=== PATIENT | female | born 1955 | race Caucasian/White ===

== ENCOUNTER 2018-06-27 14:06 | Emergency (ER) | payer MEDICARE, BC ==
[2018-06-27 14:24] VITALS: BP 159/94
[2018-06-27] MEDS ORDERED: HYDROmorphone 0.5 MG/0.5 ML Syringe IM ONE (15:22)
--- NOTE | 2018-06-27 15:48 | CR ---
Pelvis and left hip: AP view of the pelvis was obtained as well as AP and frog-leg lateral views of the left hip. Joint space narrowing is seen superiorly within the right hip with mild osteophytes off the femoral head. Joint space within the left hip is preserved. Sacroiliac joints are within normal limits. Surgical clips are seen within the pelvis. Impression: 1. Moderate degenerative change within the right hip. 2. Other incidental findings. Nothing acute is seen. Diagnostic code #2
--- NOTE | 2018-06-27 15:58 | EDM.PDOC ---
ED HPI GENERAL MEDICAL PROBLEM - General Chief Complaint: Back Pain or Injury Stated Complaint: L HIP/GROIN PAIN Time Seen by Provider: 06/27/18 14:22 Source of Information: Reports: Patient, Significant Other History Limitations: Reports: No Limitations - History of Present Illness INITIAL COMMENTS - FREE TEXT/NARRATIVE: 63 yo F w/ h/o PE on Xaralto comes in today for L hip pain that radiates to groin and L knee. She has a h/o of chronic back pain and hip/knee pain. She states that the original pain started 1 year ago and has been getting worse, with the last week being the worst. Walking makes it better, sitting and laying down make it worse. She still has good ROM overall, but has pain with flexion and twisting. She has tried Tylenol at home with no relief. She states she has not seen an orthopedic, but does see a chiropractor that "puts my hip back in place when it comes out". Last saw chiropractor Saturday as the L hip "dislocated ". She does not remember any recent trauma to the area. She c/o 10/10 pain, muscle spasms, lightheadedness and some intermittent numbness to the knee. She is able to weight-bear. She denies F/C, N/V/D, saddle anesthesia, incontinence, or any other symptoms at this time. PCP is Dr. Elvira Fu. Treatments QUALITY REP: Reports: Other (see below) Other Treatments QUALITY REP: tylenol Left Groin Pain Score (Numeric/FACES): 3 - Related Data Allergies Allergy/AdvReac Type Severity Reaction Status Date / Time No Known Allergies Allergy Verified 11/13/14 13:09 Home Meds: Home Meds Enalapril [Vasotec] 10 mg PO DAILY tablet 11/16/14 [Rx] Acetaminophen/oxyCODONE [Percocet 325-5 MG] 1 each PO Q6HR PRN #8 tab 06/27/18 [ Rx] Calcium Carb/Vitamin D3/Vit K1 [Viactiv Soft Chew] 1 tab PO DAILY 06/27/18 [ History] Fenofibrate 145 mg PO DAILY 06/27/18 [History] Rivaroxaban [Xarelto] 20 mg PO DAILY 06/27/18 [History] Simvastatin 10 mg PO BEDTIME 06/27/18 [History] hydroCHLOROthiazide [Hydrochlorothiazide] 25 mg PO DAILY 06/27/18 [History] 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 Last episode of bleeding 11 days ago. Other Musculoskeletal History: See chiropractor as needed. Other Dermatologic History: Excemea - Infectious Disease History Infectious Disease History: Reports: Chicken Pox - Past Surgical History Other Musculoskeletal Surgeries/Procedures:: fractured right arm at age 3 Social & Family History - Tobacco Use Smoking Status *Q: Never Smoker - Caffeine Use Caffeine Use: Reports: Tea - Recreational Drug Use Recreational Drug Use: No ED ROS GENERAL - Review of Systems Review Of Systems: ROS reveals no pertinent complaints other than HPI. ED EXAM,LOWER BACK PAIN/INJURY - Physical Exam Exam: See Below Exam Limited By: No Limitations General Appearance: Alert, WD/WN, Moderate Distress Eye Exam: Bilateral Eye: EOMI, Normal Inspection, PERRL Ears: Normal External Exam, Hearing Grossly Normal Head: Atraumatic, Normocephalic Respiratory/Chest: No Respiratory Distress, Lungs Clear, Normal Breath Sounds, No Accessory Muscle Use, Chest Non-Tender Cardiovascular: Normal Peripheral Pulses, Regular Rate, Rhythm, No Edema, No Gallop, No JVD, No Murmur, No Rub Back Exam: Other (Scoliosis). No: Muscle Spasm, Paraspinal Tenderness, Vertebral Tenderness Extremities: Normal Range of Motion (there is pain with hip flexion and twisting motion), No Pedal Edema, Normal Capillary Refill Psychiatric: Normal Affect, Tearful Skin Exam: Warm, Dry, Intact, Normal Color, No Rash Course - Vital Signs Last Recorded V/S: Last Vital Signs Temp 98.4 F 06/27/18 14:20 Pulse 69 06/27/18 14:20 Resp 20 06/27/18 14:20 BP 159/94 H 06/27/18 14:20 Pulse Ox 97 06/27/18 14:20 - Orders/Labs/Meds Orders: Active Orders 24 hr Category Date Time Status Hip Min 2V or 3V w Pelvis Lt [CR] Stat Exams 06/27/18 14:31 Taken Meds: Medications Discontinued Medications Generic Name Dose Route Start Last Admin Trade Name Freq PRN Reason Stop Dose Admin Hydromorphone HCl 0.5 mg 06/27/18 15:22 06/27/18 15:30 Dilaudid IM 06/27/18 15:23 0.5 mg ONETIME ONE Administration - Re-Assessments/Exams Free Text/Narrative Re-Assessment/Exam: 06/27/18 14:31 Hip XR ordered 06/27/18 15:00 Hip XR reviewed by Dr. Arias and myself- degenerative changes noted d/t arthritis, R>L. 06/27/18 15:22 Dilaudid 0.5mg ordered for extreme pain; unable to tolerate Toradol/NSAID d/t Xarelto. 06/27/18 16:01 Pt will be discharged and will need to follow up with orthopedic for help with this acute on chronic issue. Will send home with Percocet for pain as needed. Departure - Departure Time of Disposition: 16:02 Disposition: Home, Self-Care 01 Condition: Fair Clinical Impression: Degenerative arthritis of hip - Discharge Information *PRESCRIPTION DRUG MONITORING PROGRAM REVIEWED*: Not Applicable *COPY OF PRESCRIPTION DRUG MONITORING REPORT IN PATIENT REYNA: Not Applicable Prescriptions: Acetaminophen/oxyCODONE [Percocet 325-5 MG] 1 each PO Q6HR PRN #8 tab PRN Reason: Pain Instructions: Arthritis, [id number], Back Pain, Adult, [id number] Referrals: Elvira Fu MD [Primary Care Provider] - Kiel Chery MD [Physician] - Forms: ED Department Discharge Additional Instructions: You were seen in the ED today for acute left hip pain on chronic pain. Your Xray showed that there is arthritis in both of your hips, right worse than left , no fractures. At this time, pain management is needed as well as follow up with orthopedic surgeon. You can make an appointment with the orthopedic, Dr. Chery, by calling . You will be sent home with a prescription for Percocet, take as needed for pain. Do not operate machinery or drive while on this medication as it does cause impairment. Recommend follow up with your primary care provider. Please return to ED if new or worsening symptoms. - My Orders Last 24 Hours: My Active Orders 06/27/18 14:31 Hip Min 2V or 3V w Pelvis Lt [CR] Stat - Assessment/Plan Last 24 Hours: My Active Orders 06/27/18 14:31 Hip Min 2V or 3V w Pelvis Lt [CR] Stat
== END 2018-06-27 16:39 | disposition home or self-care (01) ==
LOC: JD.ED 14:06
DX: M16.0 Bilateral primary osteoarthritis of hip (principal); Z79.899 Other long term (current) drug therapy
CPT/HCPCS: 73502; 96372; 99283; J1170

== ENCOUNTER 2020-10-14 10:33 | Emergency (ER) | payer MEDICARE, BC ==
[2020-10-14 12:16] VITALS: BP 144/51; PULSE 59
[2020-10-14] MEDS ORDERED: HYDROmorphone 1 MG/ML Syringe IM ONE (12:23)
--- NOTE | 2020-10-14 12:34 | EDM.PDOC ---
ED HPI GENERAL MEDICAL PROBLEM - General Chief Complaint: General Stated Complaint: BACK AND HIP PAIN Time Seen by Provider: 10/14/20 12:10 Source of Information: Reports: Patient, RN Notes Reviewed History Limitations: Reports: No Limitations - History of Present Illness INITIAL COMMENTS - FREE TEXT/NARRATIVE: Pt is a 65 year old male presenting to the ER with c/o left hip pain. She reports chronic hip pain for a long period of time. She fell in the shower 3 weeks ago and has been having worsening pain since that time. Pain is improved by walking and worsens with sitting or lying. She has had steroid injections in the past but it has been a long time since her last. She was not seen in the clinic after her fell but has been seeing her chiropractor. Pain was improving initially but now seems worse again. Reports radiation of pain down to the level of her knee. Left Hip Pain Score (Numeric/FACES): 7 - Related Data Allergies Allergy/AdvReac Type Severity Reaction Status Date / Time No Known Allergies Allergy Verified 11/13/14 13:09 Home Meds: Home Meds Enalapril [Vasotec] 10 mg PO DAILY tablet 11/16/14 [Rx] Acetaminophen/oxyCODONE [Percocet 325-5 MG] 1 each PO Q6HR PRN #8 tab 06/27/18 [Rx] Calcium Carb/Vitamin D3/Vit K1 [Viactiv Soft Chew] 1 tab PO DAILY 06/27/18 [History] Fenofibrate 145 mg PO DAILY 06/27/18 [History] Rivaroxaban [Xarelto] 20 mg PO DAILY 06/27/18 [History] Simvastatin 10 mg PO BEDTIME 06/27/18 [History] hydroCHLOROthiazide [Hydrochlorothiazide] 25 mg PO DAILY 06/27/18 [History] Acetaminophen/oxyCODONE [Percocet 325-5 MG] 1 each PO Q4H PRN #15 tab 10/14/20 [Rx] 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 Last episode of bleeding 11 days ago. Musculoskeletal History: Reports: Osteoarthritis Other Musculoskeletal History: See chiropractor as needed. Other Dermatologic History: Excemea - Infectious Disease History Infectious Disease History: Reports: Chicken Pox, Influenza - Past Surgical History Musculoskeletal Surgical History: Reports: Other (See Below) Other Musculoskeletal Surgeries/Procedures:: fractured right arm at age 3 Social & Family History - Tobacco Use Tobacco Use Status *Q: Never Tobacco User - Caffeine Use Caffeine Use: Reports: Tea - Recreational Drug Use Recreational Drug Use: No ED ROS GENERAL - Review of Systems Review Of Systems: See Below Constitutional: Reports: No Symptoms. Denies: Fever, Chills HEENT: Reports: No Symptoms Respiratory: Reports: No Symptoms Cardiovascular: Reports: No Symptoms Endocrine: Reports: No Symptoms GI/Abdominal: Reports: No Symptoms. Denies: Nausea, Vomiting : Reports: No Symptoms Musculoskeletal: Reports: Other (left hip pain) Skin: Reports: No Symptoms Neurological: Reports: No Symptoms Psychiatric: Reports: No Symptoms Hematologic/Lymphatic: Reports: No Symptoms Immunologic: Reports: No Symptoms ED EXAM, GENERAL - Physical Exam Exam: See Below General Appearance: Alert, WD/WN, No Apparent Distress Respiratory/Chest: No Respiratory Distress, Lungs Clear, Normal Breath Sounds, No Accessory Muscle Use, Chest Non-Tender Cardiovascular: Normal Peripheral Pulses, Regular Rate, Rhythm, No Edema, No Gallop, No JVD, No Murmur, No Rub Extremities: Other (tenderness to palpation of the left posterior hip and groin. No tenderness of the greater trochanter. No redness or warmth.) Neurological: Alert, Oriented, CN II-XII Intact, Normal Cognition, Normal Gait, Normal Reflexes, No Motor/Sensory Deficits Psychiatric: Normal Affect, Normal Mood Skin Exam: Warm, Dry, Intact, Normal Color, No Rash Course - Vital Signs Last Recorded V/S: Last Vital Signs Temp 96.7 F L 10/14/20 12:15 Pulse 59 L 10/14/20 12:15 Resp 20 10/14/20 12:15 BP 144/51 H 10/14/20 12:15 Pulse Ox 93 L 10/14/20 12:15 - Orders/Labs/Meds Labs: Laboratory Tests 10/14/20 10/14/20 10/14/20 Range/Units 14:28 14:28 14:28 WBC 8.47 (3.98-10.04) K/mm3 RBC 3.94 L (3.98-5.22) M/mm3 Hgb 10.9 L (11.2-15.7) gm/dl Hct 35.2 (34.1-44.9) % MCV 89.3 (79.4-94.8) fl MCH 27.7 (25.6-32.2) pg MCHC 31.0 L (32.2-35.5) g/dl RDW Std Deviation 47.7 H (36.4-46.3) fL Plt Count 300 D (182-369) K/mm3 MPV 10.5 (9.4-12.3) fl Neut % (Auto) 75.7 H (34.0-71.1) % Lymph % (Auto) 13.7 L (19.3-51.7) % Dixie % (Auto) 9.6 (4.7-12.5) % Eos % (Auto) 0.7 (0.7-5.8) Baso % (Auto) 0.2 (0.1-1.2) % Neut # (Auto) 6.41 H (1.56-6.13) K/mm3 Lymph # (Auto) 1.16 L (1.18-3.74) K/mm3 Dixie # (Auto) 0.81 H (0.24-0.36) K/mm3 Eos # (Auto) 0.06 (0.04-0.36) K/mm3 Baso # (Auto) 0.02 (0.01-0.08) K/mm3 ESR 80 H (0-20) mm/hr Sodium 142 (136-145) mEq/L Potassium 4.0 (3.5-5.1) mEq/L Chloride 105 (98-107) mEq/L Carbon Dioxide 25 (21-32) mEq/L Anion Gap 16.0 H (5-15) BUN 31 H (7-18) mg/dL Creatinine 1.3 H (0.55-1.02) mg/dL Est Cr Clr Drug Dosing 36.26 mL/min Estimated GFR (MDRD) 41 (>60) mL/min BUN/Creatinine Ratio 23.8 H (14-18) Glucose 96 (70-99) mg/dL Calcium 9.5 (8.5-10.1) mg/dL Total Bilirubin 0.4 (0.2-1.0) mg/dL AST 19 (15-37) U/L ALT 17 (14-59) U/L Alkaline Phosphatase 66 (46-116) U/L C-Reactive Protein 5.4 H* (<1.0) mg/dL Total Protein 7.7 (6.4-8.2) g/dl Albumin 3.6 (3.4-5.0) g/dl Globulin 4.1 gm/dL Albumin/Globulin Ratio 0.9 L (1-2) Meds: Medications Discontinued Medications Generic Name Dose Route Start Last Admin Trade Name Sandeepq PRN Reason Stop Dose Admin Hydromorphone HCl 1 mg 10/14/20 12:23 10/14/20 12:43 Hydromorphone 1 Mg/Ml Syringe IM 10/14/20 12:24 1 mg ONETIME ONE Administration - Re-Assessments/Exams Free Text/Narrative Re-Assessment/Exam: 10/14/20 14:30 Patient's pain is much better after the 1 mg of IM Dilaudid. X-ray of the left hip impression as follows: 1. Lucency within the medial left acetabular wall compatible with an osteolytic lesion. Please correlate if the patient has infectious etiology or history of malignancy to represent metastases. 2. Diffuse joint space narrowing in both hips. 3. Lytic lesion is an interval change from prior radiography studies. Results discussed with patient. She reports she does have a history of endometrial cancer a number of years back which she was in remission from. She is had no infectious symptoms. I have ordered blood work to look for signs of infection. Once this is completed, I will consult with orthopedics. 10/14/20 1540 Hematology shows a normal WBC, ESR elevated at 80, and CRP elelvated at 5.4. [facility] He recommended that we obtain a CT of the hip and have her follow up with them in the clinic next week. I have ordered CT of the left hip. 10/14/20 16:48 Radiologist read of this hip CT is pending, however patient would like to be discharged. I will have her follow-up next week in the clinic with Dr. Chery. I will send prescription for Percocet for pain. Discharge instructions as documented. Departure - Departure Time of Disposition: 16:48 Disposition: Home, Self-Care 01 Condition: Good Clinical Impression: Hip pain, left - Discharge Information *PRESCRIPTION DRUG MONITORING PROGRAM REVIEWED*: Yes *COPY OF PRESCRIPTION DRUG MONITORING REPORT IN PATIENT REYNA: No Prescriptions: Acetaminophen/oxyCODONE [Percocet 325-5 MG] 1 each PO Q4H PRN #15 tab PRN Reason: Pain Instructions: Hip Pain Referrals: Elvira Fu MD [Primary Care Provider] - Kiel Chery MD [Physician] - Forms: ED Department Discharge Additional Instructions: Seen in the emergency department today for had left hip pain. Work-up included x-ray and a CT scan of your hip as well as blood work. There is concerns of an osteolytic lesion in your hip. Recommend follow-up with orthopedist, Dr. Chery early next week. The number to schedule with him as listed below. Recommend routine Tylenol discomfort. For pain not relieved by this, a prescription for Percocet has been provided. Take this only as prescribed. Do not work or drive for 12 hours after taking this as it can be sedating. Ensure that you do not take more than 4000 mg of Tylenol for all sources in a 24-hour period. If you should experience any worsening symptoms, please do not hesitate to return to the emergency department for reevaluation. Sepsis Event Note (ED) - Evaluation Sepsis Screening Result: No Definite Risk
--- NOTE | 2020-10-14 13:31 | CR ---
Pelvis and left hip: AP view of the pelvis was obtained as well as AP and frog-leg lateral view of the left hip. Comparison: Prior pelvis and left hip study of 06/27/18. Joint space narrowing is noted within both hips, worse on the left side. Lucency is noted within the medial acetabular wall of the left hip and compatible with an osteolytic lesion. Sacroiliac joints are normal. Bony structures are slightly osteopenic. Surgical clips are seen within the pelvis. Impression: 1. Lucency within the medial left acetabular wall compatible with an osteolytic lesion. Please correlate if patient has infectious etiology or history of malignancy to represent metastasis. 2. Diffuse joint space narrowing within both hips. 3. Lytic lesion is an interval change from prior radiographic study. Diagnostic code #9
--- NOTE | 2020-10-16 16:43 | CT ---
CT left hip Technique: Multiple axial sections through the left hip were obtained. Reconstructed coronal and sagittal images were obtained. Comparison: Prior left hip radiograph performed on the same day (12:30 PM). Findings: Large soft tissue mass is seen which invades the medial acetabular wall causing the lucency on plain film study. This soft tissue mass has transverse dimension of 7.7 cm, AP dimension of 8.0 cm and a craniocaudal height of approximately 9.5 cm. Medial acetabular wall is missing. This presumably is metastatic. There is diffuse joint space narrowing within the left hip. Inferior and superior pubic ramus are intact. Joint space narrowing is also noted within the right hip. Disc space narrowing is noted within L5-S1 with posterior spurring. Degenerative apophyseal change is noted within the lower lumbar spine. Impression: 1. Large soft tissue mass causing destruction of the left side of the pelvis in the area of the hip. Medial acetabular wall is missing. Measurements as noted above. This presumably is metastatic disease. 2. Degenerative change within both hips as well as within the lumbar spine. Diagnostic code #9 MTDD
== END 2020-10-14 16:54 | disposition home or self-care (01) ==
LOC: JD.ED 10:33
DX: M25.552 Pain in left hip (principal); M19.90 Unspecified osteoarthritis, unspecified site; Z79.01 Long term (current) use of anticoagulants; Z79.899 Other long term (current) drug therapy
CPT/HCPCS: 36415; 73502; 73700; 80053; 85025; 85652; 86140; 96372; 99284; J1170; 99283

== ENCOUNTER 2021-10-16 13:28 | Emergency (ER) | payer MEDICARE, BC ==
[2021-10-16] MEDS ORDERED: Sodium Chloride 0.9% 10 ML Syringe FLUSH PRN (15:57)
[2021-10-16] MEDS ORDERED: cloNIDine 0.1 MG Tab PO ONE (16:26)
[2021-10-16 19:30] VITALS: BP 220/82; PULSE 52
== END 2021-10-16 19:20 | disposition home or self-care (01) ==
LOC: JD.ED 13:28
DX: I10 Essential (primary) hypertension (principal); R19.7 Diarrhea, unspecified; D64.9 Anemia, unspecified; Z79.899 Other long term (current) drug therapy
CPT/HCPCS: 36415; 71045; 80053; 81001; 84484; 85025; 93005; 99284; A9270; 93010

== ENCOUNTER 2021-11-16 16:18 | Emergency (ER) | payer MEDICARE, BC ==
[2021-11-16 17:10] VITALS: BP 132/57; PULSE 55
[2021-11-16 18:38] LABS: ESTIMATED GFR 23 mL/min (>60)
[2021-11-16] MEDS ORDERED: Potassium Chloride 10 MEQ in Premix Bag 1 BAG IV SCH (19:00)
== END 2021-11-16 20:15 | disposition home or self-care (01) ==
LOC: JD.ED 16:18
DX: D64.89 Other specified anemias (principal); E87.6 Hypokalemia; M19.90 Unspecified osteoarthritis, unspecified site; Z79.01 Long term (current) use of anticoagulants; Z79.899 Other long term (current) drug therapy
CPT/HCPCS: 36415; 80053; 85025; 96365; 99284; J3480; 86850; 86900; 86901; 86922; 99283

== ENCOUNTER 2022-09-03 09:01 | Day surgery (SDC) | payer MEDICARE, BC ==
[2022-09-03] MEDS ORDERED: Sodium Chloride 0.9% 10 ML Syringe FLUSH PRN (09:02)
[2022-09-03] MEDS ORDERED: Lidocaine 1%/Sod Bicarbonate in NS 8.4% 1 ML Syringe IDERM PRN (09:02)
[2022-09-03] MEDS ORDERED: Lactated Ringers 1,000 ML IV SCH (09:15)
[2022-09-03] MEDS ORDERED: Propofol 200 MG/20 ML SDV ONE ×3 (09:55→10:50)
[2022-09-03] MEDS ORDERED: fentaNYL 100 MCG/2 ML SDV ONE (10:05)
[2022-09-03 10:25] LABS: ANION GAP 14.1 (5-15); BLOOD UREA NITROGEN,BUN 24 mg/dL (7-18); CALCIUM 8.7 mg/dL (8.5-10.1); CARBON DIOXIDE,CO2 23 mEq/L (21-32); CHLORIDE,CL 106 mEq/L (98-107); CREATININE 1.2 mg/dL (0.55-1.02); ESTIMATED GFR 49 mL/min (>60); GLUCOSE RANDOM 107 mg/dL (70-99); POTASSIUM,K 4.1 mEq/L (3.5-5.1); SODIUM,NA 139 mEq/L (136-145)
[2022-09-03] MEDS ORDERED: Midazolam 1 MG/ML 2 ML SDV ONE (10:25)
[2022-09-03 13:41] VITALS: BP 142/49; PULSE 58
== END 2022-09-03 12:42 | disposition home or self-care (01) ==
LOC: JD.SDS 09:01
PROVIDERS: ATTEND Surgery
DX: Z12.11 Encounter for screening for malignant neoplasm of colon (principal); K29.50 Unspecified chronic gastritis without bleeding; K31.A0 Gastric intestinal metaplasia, unspecified; K44.9 Diaphragmatic hernia without obstruction or gangrene; K29.80 Duodenitis without bleeding; Z53.09 Procedure and treatment not carried out because of other contraindication; I10 Essential (primary) hypertension; E78.2 Mixed hyperlipidemia; Z86.010 Personal history of colon polyps; Z79.899 Other long term (current) drug therapy; Z88.1 Allergy status to other antibiotic agents; Z88.5 Allergy status to narcotic agent
CPT/HCPCS: 36415; 43239; 80048; G0104; J2250; J2704; J3010; J7120

== ENCOUNTER 2023-03-16 10:49 | Emergency (ER) | payer MEDICARE, BC ==
[2023-03-16] MEDS ORDERED: HYDROmorphone 0.5 MG/0.5 ML Syringe IVPUSH ONE (12:46)
[2023-03-16 13:01] LABS: BASOPHILS PERCENT AUTO 0.2 % (0.0-1.0); EOSINOPHILS PERCENT AUTO 0.2 % (0.0-6.0); HEMATOCRIT 33.5 % (37.0-47.0); HEMOGLOBIN 11.3 gm/dl (12.0-16.0); IMMATURE GRAN ABSOLUTE AUTO 0.06 K/mm3 (0.00-0.05); IMMATURE GRAN PERCENT AUTO 1.1 % (0.0-0.4); LYMPHOCYTES ABSOLUTE AUTO 0.5 K/mm3 (1.0-4.8); LYMPHOCYTES PERCENT AUTO 8.8 % (24.0-44.0); MEAN CORPUSCULAR HEMOGLOBIN 33.5 pg (28.0-32.0); MEAN CORPUSCULAR HGB CONC 33.7 g/dl (32.0-36.0); MEAN CORPUSCULAR VOLUME 99.4 fl (83.0-99.0); MEAN PLATELET VOLUME 9.7 fl (9.4-12.3); MONOCYTES ABSOLUTE AUTO 0.7 K/mm3 (0.0-0.8); MONOCYTES PERCENT AUTO 13.6 % (0.0-8.0); NEUTROPHILS PERCENT AUTO 76.1 % (41.0-71.0); PLATELET COUNT,PLT 321 K/mm3 (150-400); RED BLOOD CELL COUNT 3.37 M/mm3 (4.10-5.30); WHITE BLOOD CELL COUNT,WBC 5.22 K/mm3 (3.9-11.3)
[2023-03-16] MEDS ORDERED: Ondansetron 4 MG/2 ML SDV IVPUSH ONE (13:04)
[2023-03-16 13:10] LABS: A/G RATIO 0.7 (1-2); ALBUMIN 2.8 g/dl (3.4-5.0); ANION GAP 20.1 (5-15); BILIRUBIN TOTAL 0.6 mg/dL (0.2-1.0); BUN/CREATININE RATIO 28.7 (14-18); CALCIUM 8.6 mg/dL (8.5-10.1); CREATININE 1.5 mg/dL (0.55-1.02); EST CRCL DRUG DOSING (CG) 30.57 mL/min; POTASSIUM,K 3.1 mEq/L (3.5-5.1); PROTEIN TOTAL,TP 6.7 g/dl (6.4-8.2)
[2023-03-16] MEDS ORDERED: Potassium Chloride 20 MEQ Tab.ER PO ONE (13:30)
[2023-03-16] MEDS ORDERED: Sodium Chloride 0.9% 1,000 ML IV SCH (13:30)
[2023-03-16 13:50] LABS: APPEARANCE,URINE CLEAR (Clear); BILIRUBIN,URINE 1+ (Negative); COLOR,URINE YELLOW (Yellow); GLUCOSE,URINE NEGATIVE (Negative); KETONES,URINE 1+ (Negative); LEUKOCYTE ESTERASE,URINE NEGATIVE (Negative); NITRITE,URINE NEGATIVE (Negative); OCCULT BLOOD,URINE NEGATIVE (Negative); PROTEIN,URINE 2+ (Negative); UROBILINOGEN,URINE 0.2 (0.2-1.0)
[2023-03-16 14:15] LABS: RBC,URINE NOT SEEN /hpf (0-5); SQUAMOUS EPITHELIAL CELLS,UR 0-5 /hpf (0-5); WBC,URINE 0-5 /hpf (0-5)
[2023-03-16 14:16] LABS: BACTERIA,URINE MODERATE /hpf (FEW); MUCUS,URINE RARE /hpf (FEW)
[2023-03-16] MEDS ORDERED: fentaNYL 25 MCG/HR Transdermal Patch TRDERM SCH (14:30)
[2023-03-16 15:10] VITALS: BP 166/81; PULSE 65
== END 2023-03-16 15:45 | disposition home or self-care (01) ==
LOC: JD.ED 10:49
DX: M25.552 Pain in left hip (principal); T45.1X5A Adverse effect of antineoplastic and immunosuppressive drugs, initial encounter; I12.9 Hypertensive chronic kidney disease with stage 1 through stage 4 chronic kidney disease, or unspecified chronic kidney disease; N18.9 Chronic kidney disease, unspecified; E78.00 Pure hypercholesterolemia, unspecified; Z90.710 Acquired absence of both cervix and uterus; Z79.899 Other long term (current) drug therapy; Z88.8 Allergy status to other drugs, medicaments and biological substances; Z88.5 Allergy status to narcotic agent; Z91.048 Other nonmedicinal substance allergy status
CPT/HCPCS: 36415; 70450; 80053; 81001; 83735; 85025; 96361; 96374; 96375; 99285; A9270; J1170; J2405; J7030

== ENCOUNTER 2024-10-17 20:16 | Inpatient (IN) | payer MEDICARE, BC ==
[2024-10-17 21:06] LABS: BASOPHILS ABSOLUTE AUTO 0.0 K/mm3 (0.0-0.2); BASOPHILS PERCENT AUTO 0.1 % (0.0-1.0); EOSINOPHILS ABSOLUTE AUTO 0.0 K/mm3 (0.0-0.4); EOSINOPHILS PERCENT AUTO 0.1 % (0.0-6.0); IMMATURE GRAN ABSOLUTE AUTO 0.08 K/mm3 (0.00-0.05); IMMATURE GRAN PERCENT AUTO 0.5 % (0.0-0.4); LYMPHOCYTES ABSOLUTE AUTO 0.3 K/mm3 (1.0-4.8); LYMPHOCYTES PERCENT AUTO 1.7 % (24.0-44.0); MEAN PLATELET VOLUME 9.1 fl (9.4-12.3); MONOCYTES ABSOLUTE AUTO 1.0 K/mm3 (0.0-0.8); MONOCYTES PERCENT AUTO 6.8 % (0.0-8.0); NEUTROPHILS ABSOLUTE AUTO 13.9 K/mm3 (1.8-7.7); NEUTROPHILS PERCENT AUTO 90.8 % (41.0-71.0); NRBC ABSOLUTE 0.00 (0.00-0.02); NRBC PERCENT 0.0 % (0.0-0.2); PLATELET COUNT,PLT 248 K/mm3 (150-400); RED BLOOD CELL COUNT 3.54 M/mm3 (4.10-5.30); WHITE BLOOD CELL COUNT,WBC 15.31 K/mm3 (3.9-11.3)
[2024-10-17 21:31] LABS: A/G RATIO 0.8 (1-2); ALANINE AMINOTRANSFERASE,ALT 26 U/L (14-59); ASPARTATE AMNIOTRANSFERASE,AST 22 U/L (15-37); BILIRUBIN TOTAL 0.5 mg/dL (0.2-1.0); BLOOD UREA NITROGEN,BUN 29 mg/dL (7-18); CARBON DIOXIDE,CO2 22 mEq/L (21-32); CHLORIDE,CL 103 mEq/L (98-107); CREATININE 1.4 mg/dL (0.55-1.02); ESTIMATED GFR 40 mL/min (>60); GLUCOSE RANDOM 128 mg/dL (70-99); POTASSIUM,K 4.6 mEq/L (3.5-5.1); PROTEIN TOTAL,TP 6.7 g/dl (6.4-8.2); SODIUM,NA 137 mEq/L (136-145)
[2024-10-17] MEDS ORDERED: Sodium Chloride 0.9% 10 ML Syringe FLUSH PRN ×2 (21:48→23:22)
[2024-10-17] MEDS: Sodium Chloride 0.9% 10 ML Syringe FLUSH PRN (22:27)
[2024-10-17] MEDS: Iopamidol 612 MG/ML 100 ML Bottle IVPUSH ONE (22:27)
[2024-10-17 23:38] LABS: INR 1.09
[2024-10-17 23:46] LABS: LACTIC ACID 0.7 mmol/L (0.4-2.0)
[2024-10-18 00:22] LABS: APPEARANCE,URINE CLEAR (Clear); GLUCOSE,URINE NEGATIVE (Negative); OCCULT BLOOD,URINE TRACE-LYSED (Negative)
[2024-10-18 00:44] LABS: FINE GRANULAR CASTS,URINE 0-5 /lpf (0-5)
[2024-10-18 05:46] LABS: BASOPHILS ABSOLUTE AUTO 0.0 K/mm3 (0.0-0.2); BASOPHILS PERCENT AUTO 0.1 % (0.0-1.0); EOSINOPHILS ABSOLUTE AUTO 0.0 K/mm3 (0.0-0.4); EOSINOPHILS PERCENT AUTO 0.0 % (0.0-6.0); IMMATURE GRAN ABSOLUTE AUTO 0.43 K/mm3 (0.00-0.05); IMMATURE GRAN PERCENT AUTO 2.5 % (0.0-0.4); LYMPHOCYTES ABSOLUTE AUTO 0.3 K/mm3 (1.0-4.8); LYMPHOCYTES PERCENT AUTO 1.8 % (24.0-44.0); MEAN PLATELET VOLUME 9.6 fl (9.4-12.3); MONOCYTES ABSOLUTE AUTO 1.4 K/mm3 (0.0-0.8); MONOCYTES PERCENT AUTO 8.3 % (0.0-8.0); NEUTROPHILS ABSOLUTE AUTO 14.9 K/mm3 (1.8-7.7); NEUTROPHILS PERCENT AUTO 87.3 % (41.0-71.0); NRBC ABSOLUTE 0.00 (0.00-0.02); NRBC PERCENT 0.0 % (0.0-0.2); PLATELET COUNT,PLT 241 K/mm3 (150-400); RED BLOOD CELL COUNT 3.24 M/mm3 (4.10-5.30); WHITE BLOOD CELL COUNT,WBC 17.05 K/mm3 (3.9-11.3)
[2024-10-18 06:16] LABS: A/G RATIO 0.7 (1-2); ALANINE AMINOTRANSFERASE,ALT 24.0 U/L (14-59); ASPARTATE AMNIOTRANSFERASE,AST 24.0 U/L (15-37); BILIRUBIN TOTAL 0.6 mg/dL (0.2-1.0); BLOOD UREA NITROGEN,BUN 25.0 mg/dL (7-18); CARBON DIOXIDE,CO2 22.0 mEq/L (21-32); CHLORIDE,CL 103.0 mEq/L (98-107); CREATININE 1.3 mg/dL (0.55-1.02); EST CRCL DRUG DOSING (CG) 29.95 mL/min; ESTIMATED GFR 44.0 mL/min (>60); GLUCOSE RANDOM 124.0 mg/dL (70-99); PHOSPHORUS 2.6 mg/dL (2.6-4.7); POTASSIUM,K 4.3 mEq/L (3.5-5.1); PROTEIN TOTAL,TP 6.0 g/dl (6.4-8.2); SODIUM,NA 135.0 mEq/L (136-145)
[2024-10-18] MEDS: Magnesium Sulfat/D5W 1GM/100ML 1 GM in Premix Bag 1 BAG IV ONE (08:47)
[2024-10-18] MEDS ORDERED: Labetalol 100 MG/20 ML MDV IVPUSH PRN (08:47)
[2024-10-18] MEDS: Heparin Sodium 5,000 Units/ML Vial SUBCUT SCH (10:47)
[2024-10-18] MEDS: Furosemide 40 MG/4 ML VIAL IVPUSH ONE (10:47)
[2024-10-18] MEDS: Ondansetron 4 MG/2 ML SDV IVPUSH PRN (17:27)
[2024-10-18] MEDS ORDERED: Sennosides/Docusate Sodium 50-8.6 MG Tab PO PRN (21:00)
[2024-10-19 06:04] LABS: BASOPHILS ABSOLUTE AUTO 0.0 K/mm3 (0.0-0.2); BASOPHILS PERCENT AUTO 0.1 % (0.0-1.0); EOSINOPHILS ABSOLUTE AUTO 0.0 K/mm3 (0.0-0.4); EOSINOPHILS PERCENT AUTO 0.0 % (0.0-6.0); IMMATURE GRAN ABSOLUTE AUTO 0.15 K/mm3 (0.00-0.05); IMMATURE GRAN PERCENT AUTO 0.8 % (0.0-0.4); LYMPHOCYTES ABSOLUTE AUTO 0.4 K/mm3 (1.0-4.8); LYMPHOCYTES PERCENT AUTO 2.4 % (24.0-44.0); MEAN PLATELET VOLUME 9.6 fl (9.4-12.3); MONOCYTES ABSOLUTE AUTO 1.3 K/mm3 (0.0-0.8); MONOCYTES PERCENT AUTO 7.3 % (0.0-8.0); NEUTROPHILS ABSOLUTE AUTO 16.1 K/mm3 (1.8-7.7); NEUTROPHILS PERCENT AUTO 89.4 % (41.0-71.0); NRBC ABSOLUTE 0.00 (0.00-0.02); NRBC PERCENT 0.0 % (0.0-0.2); PLATELET COUNT,PLT 262 K/mm3 (150-400); RED BLOOD CELL COUNT 3.59 M/mm3 (4.10-5.30); WHITE BLOOD CELL COUNT,WBC 18.00 K/mm3 (3.9-11.3)
[2024-10-19 06:24] LABS: BLOOD UREA NITROGEN,BUN 25 mg/dL (7-18); CARBON DIOXIDE,CO2 24 mEq/L (21-32); CHLORIDE,CL 101 mEq/L (98-107); CREATININE 1.3 mg/dL (0.55-1.02); EST CRCL DRUG DOSING (CG) 29.95 mL/min; ESTIMATED GFR 44 mL/min (>60); GLUCOSE RANDOM 137 mg/dL (70-99); PHOSPHORUS 3.3 mg/dL (2.6-4.7); POTASSIUM,K 3.3 mEq/L (3.5-5.1); SODIUM,NA 137 mEq/L (136-145)
[2024-10-19 09:26] LABS: FOLIC ACID 53.0 ng/mL (8.6-58.9)
[2024-10-19] MEDS ORDERED: Naloxone 0.4 MG/ML SDV IVPUSH PRN (10:01)
[2024-10-19] MEDS: hydrALAZINE 20 MG/ML SDV IVPUSH PRN (13:29)
[2024-10-19] MEDS: Sodium Chloride 0.9% 10 ML Syringe FLUSH PRN (13:43)
[2024-10-19] MEDS: Iopamidol 612 MG/ML 100 ML Bottle IVPUSH ONE (14:59)
[2024-10-19] MEDS: LORazepam 2 MG/ML SDV IVPUSH ONE (15:45)
[2024-10-19] MEDS: Oxacillin 2 GM in Sodium Chloride 0.9% 100 ML IV SCH (17:18)
[2024-10-20 07:39] LABS: BASOPHILS ABSOLUTE AUTO 0.0 K/mm3 (0.0-0.2); BASOPHILS PERCENT AUTO 0.1 % (0.0-1.0); EOSINOPHILS ABSOLUTE AUTO 0.0 K/mm3 (0.0-0.4); EOSINOPHILS PERCENT AUTO 0.0 % (0.0-6.0); IMMATURE GRAN ABSOLUTE AUTO 0.14 K/mm3 (0.00-0.05); IMMATURE GRAN PERCENT AUTO 0.9 % (0.0-0.4); LYMPHOCYTES ABSOLUTE AUTO 0.5 K/mm3 (1.0-4.8); LYMPHOCYTES PERCENT AUTO 3.0 % (24.0-44.0); MEAN PLATELET VOLUME 9.7 fl (9.4-12.3); MONOCYTES ABSOLUTE AUTO 1.1 K/mm3 (0.0-0.8); MONOCYTES PERCENT AUTO 7.1 % (0.0-8.0); NEUTROPHILS ABSOLUTE AUTO 13.6 K/mm3 (1.8-7.7); NEUTROPHILS PERCENT AUTO 88.9 % (41.0-71.0); NRBC ABSOLUTE 0.00 (0.00-0.02); NRBC PERCENT 0.0 % (0.0-0.2); PLATELET COUNT,PLT 259 K/mm3 (150-400); RED BLOOD CELL COUNT 3.38 M/mm3 (4.10-5.30); WHITE BLOOD CELL COUNT,WBC 15.24 K/mm3 (3.9-11.3)
[2024-10-20 07:58] LABS: A/G RATIO 0.5 (1-2); ALANINE AMINOTRANSFERASE,ALT 42 U/L (14-59); ASPARTATE AMNIOTRANSFERASE,AST 50 U/L (15-37); BILIRUBIN TOTAL 0.5 mg/dL (0.2-1.0); BLOOD UREA NITROGEN,BUN 27 mg/dL (7-18); CARBON DIOXIDE,CO2 23 mEq/L (21-32); CHLORIDE,CL 103 mEq/L (98-107); CREATINE KINASE,CK 291 U/L (26-192); CREATININE 1.2 mg/dL (0.55-1.02); EST CRCL DRUG DOSING (CG) 32.45 mL/min; ESTIMATED GFR 48 mL/min (>60); GLUCOSE RANDOM 123 mg/dL (70-99); POTASSIUM,K 3.0 mEq/L (3.5-5.1); PROTEIN TOTAL,TP 6.3 g/dl (6.4-8.2); SODIUM,NA 139 mEq/L (136-145)
[2024-10-20] MEDS: Potassium Chloride 20 MEQ Tab.ER PO ONE (17:57)
[2024-10-21 09:00] LABS: BASOPHILS ABSOLUTE AUTO 0.0 K/mm3 (0.0-0.2); BASOPHILS PERCENT AUTO 0.1 % (0.0-1.0); EOSINOPHILS ABSOLUTE AUTO 0.0 K/mm3 (0.0-0.4); EOSINOPHILS PERCENT AUTO 0.0 % (0.0-6.0); IMMATURE GRAN ABSOLUTE AUTO 0.10 K/mm3 (0.00-0.05); IMMATURE GRAN PERCENT AUTO 0.8 % (0.0-0.4); LYMPHOCYTES ABSOLUTE AUTO 0.4 K/mm3 (1.0-4.8); LYMPHOCYTES PERCENT AUTO 3.4 % (24.0-44.0); MEAN PLATELET VOLUME 9.9 fl (9.4-12.3); MONOCYTES ABSOLUTE AUTO 1.0 K/mm3 (0.0-0.8); MONOCYTES PERCENT AUTO 7.9 % (0.0-8.0); NEUTROPHILS ABSOLUTE AUTO 11.5 K/mm3 (1.8-7.7); NEUTROPHILS PERCENT AUTO 87.8 % (41.0-71.0); NRBC ABSOLUTE 0.00 (0.00-0.02); NRBC PERCENT 0.0 % (0.0-0.2); PLATELET COUNT,PLT 264 K/mm3 (150-400); RED BLOOD CELL COUNT 3.13 M/mm3 (4.10-5.30); WHITE BLOOD CELL COUNT,WBC 13.05 K/mm3 (3.9-11.3)
[2024-10-21 09:11] LABS: A/G RATIO 0.4 (1-2); ALANINE AMINOTRANSFERASE,ALT 54.0 U/L (14-59); ASPARTATE AMNIOTRANSFERASE,AST 63.0 U/L (15-37); BILIRUBIN TOTAL 0.4 mg/dL (0.2-1.0); BLOOD UREA NITROGEN,BUN 29.0 mg/dL (7-18); CARBON DIOXIDE,CO2 24.0 mEq/L (21-32); CHLORIDE,CL 102.0 mEq/L (98-107); CREATININE 1.2 mg/dL (0.55-1.02); EST CRCL DRUG DOSING (CG) 32.45 mL/min; ESTIMATED GFR 48.0 mL/min (>60); GLUCOSE RANDOM 116.0 mg/dL (70-99); POTASSIUM,K 3.0 mEq/L (3.5-5.1); PROTEIN TOTAL,TP 5.7 g/dl (6.4-8.2); SODIUM,NA 136.0 mEq/L (136-145)
[2024-10-22] MEDS: Furosemide 40 MG/4 ML VIAL IVPUSH ONE (15:03)
[2024-10-22] MEDS: Potassium Chloride 20 MEQ Tab.ER PO ONE (17:02)
[2024-10-23 09:24] LABS: BASOPHILS ABSOLUTE AUTO 0.0 K/mm3 (0.0-0.2); BASOPHILS PERCENT AUTO 0.2 % (0.0-1.0); EOSINOPHILS ABSOLUTE AUTO 0.0 K/mm3 (0.0-0.4); EOSINOPHILS PERCENT AUTO 0.3 % (0.0-6.0); IMMATURE GRAN ABSOLUTE AUTO 0.22 K/mm3 (0.00-0.05); IMMATURE GRAN PERCENT AUTO 1.7 % (0.0-0.4); LYMPHOCYTES ABSOLUTE AUTO 0.3 K/mm3 (1.0-4.8); LYMPHOCYTES PERCENT AUTO 2.3 % (24.0-44.0); MEAN PLATELET VOLUME 10.2 fl (9.4-12.3); MONOCYTES ABSOLUTE AUTO 0.8 K/mm3 (0.0-0.8); MONOCYTES PERCENT AUTO 6.0 % (0.0-8.0); NEUTROPHILS ABSOLUTE AUTO 11.7 K/mm3 (1.8-7.7); NEUTROPHILS PERCENT AUTO 89.5 % (41.0-71.0); NRBC ABSOLUTE 0.00 (0.00-0.02); NRBC PERCENT 0.0 % (0.0-0.2); PLATELET COUNT,PLT 300 K/mm3 (150-400); RED BLOOD CELL COUNT 3.15 M/mm3 (4.10-5.30); WHITE BLOOD CELL COUNT,WBC 13.10 K/mm3 (3.9-11.3)
[2024-10-23 10:12] LABS: A/G RATIO 0.4 (1-2); ALANINE AMINOTRANSFERASE,ALT 60.0 U/L (14-59); ASPARTATE AMNIOTRANSFERASE,AST 56.0 U/L (15-37); BILIRUBIN TOTAL 0.9 mg/dL (0.2-1.0); BLOOD UREA NITROGEN,BUN 32.0 mg/dL (7-18); CARBON DIOXIDE,CO2 25.0 mEq/L (21-32); CHLORIDE,CL 98.0 mEq/L (98-107); CREATININE 1.3 mg/dL (0.55-1.02); EST CRCL DRUG DOSING (CG) 29.95 mL/min; ESTIMATED GFR 44.0 mL/min (>60); GLUCOSE RANDOM 142.0 mg/dL (70-99); POTASSIUM,K 3.2 mEq/L (3.5-5.1); PROTEIN TOTAL,TP 5.9 g/dl (6.4-8.2); SODIUM,NA 133.0 mEq/L (136-145)
[2024-10-23] MEDS: Potassium Chloride 20 MEQ Tab.ER PO ONE (14:22)
[2024-10-24 05:37] LABS: BASOPHILS ABSOLUTE AUTO 0.0 K/mm3 (0.0-0.2); BASOPHILS PERCENT AUTO 0.2 % (0.0-1.0); EOSINOPHILS ABSOLUTE AUTO 0.1 K/mm3 (0.0-0.4); EOSINOPHILS PERCENT AUTO 0.8 % (0.0-6.0); IMMATURE GRAN ABSOLUTE AUTO 0.38 K/mm3 (0.00-0.05); IMMATURE GRAN PERCENT AUTO 2.7 % (0.0-0.4); LYMPHOCYTES ABSOLUTE AUTO 0.6 K/mm3 (1.0-4.8); LYMPHOCYTES PERCENT AUTO 4.2 % (24.0-44.0); MEAN PLATELET VOLUME 10.2 fl (9.4-12.3); MONOCYTES ABSOLUTE AUTO 1.0 K/mm3 (0.0-0.8); MONOCYTES PERCENT AUTO 7.4 % (0.0-8.0); NEUTROPHILS ABSOLUTE AUTO 11.8 K/mm3 (1.8-7.7); NEUTROPHILS PERCENT AUTO 84.7 % (41.0-71.0); NRBC ABSOLUTE 0.00 (0.00-0.02); NRBC PERCENT 0.0 % (0.0-0.2); PLATELET COUNT,PLT 342 K/mm3 (150-400); RED BLOOD CELL COUNT 3.18 M/mm3 (4.10-5.30); WHITE BLOOD CELL COUNT,WBC 13.96 K/mm3 (3.9-11.3)
[2024-10-24 05:46] LABS: BLOOD UREA NITROGEN,BUN 36.0 mg/dL (7-18); CARBON DIOXIDE,CO2 29.0 mEq/L (21-32); CHLORIDE,CL 98.0 mEq/L (98-107); CREATININE 1.5 mg/dL (0.55-1.02); EST CRCL DRUG DOSING (CG) 25.96 mL/min; ESTIMATED GFR 37.0 mL/min (>60); GLUCOSE RANDOM 121.0 mg/dL (70-99); POTASSIUM,K 3.9 mEq/L (3.5-5.1); SODIUM,NA 134.0 mEq/L (136-145)
[2024-10-24] MEDS ORDERED: EXEMESTANE 25 MG PO SCH (09:00)
[2024-10-26 06:36] LABS: BLOOD UREA NITROGEN,BUN 40.0 mg/dL (7-18); CARBON DIOXIDE,CO2 29.0 mEq/L (21-32); CHLORIDE,CL 93.0 mEq/L (98-107); CREATININE 1.4 mg/dL (0.55-1.02); EST CRCL DRUG DOSING (CG) 27.81 mL/min; ESTIMATED GFR 40.0 mL/min (>60); GLUCOSE RANDOM 115.0 mg/dL (70-99); POTASSIUM,K 3.6 mEq/L (3.5-5.1); SODIUM,NA 130.0 mEq/L (136-145)
[2024-10-26 07:56] LABS: BASOPHILS ABSOLUTE AUTO 0.0 K/mm3 (0.0-0.2); BASOPHILS PERCENT AUTO 0.2 % (0.0-1.0); EOSINOPHILS ABSOLUTE AUTO 0.1 K/mm3 (0.0-0.4); EOSINOPHILS PERCENT AUTO 0.6 % (0.0-6.0); IMMATURE GRAN ABSOLUTE AUTO 0.23 K/mm3 (0.00-0.05); IMMATURE GRAN PERCENT AUTO 1.8 % (0.0-0.4); LYMPHOCYTES ABSOLUTE AUTO 0.4 K/mm3 (1.0-4.8); LYMPHOCYTES PERCENT AUTO 3.5 % (24.0-44.0); MEAN PLATELET VOLUME 10.6 fl (9.4-12.3); MONOCYTES ABSOLUTE AUTO 0.7 K/mm3 (0.0-0.8); MONOCYTES PERCENT AUTO 5.5 % (0.0-8.0); NEUTROPHILS ABSOLUTE AUTO 11.2 K/mm3 (1.8-7.7); NEUTROPHILS PERCENT AUTO 88.4 % (41.0-71.0); NRBC ABSOLUTE 0.00 (0.00-0.02); NRBC PERCENT 0.0 % (0.0-0.2); PLATELET COUNT,PLT 391 K/mm3 (150-400); RED BLOOD CELL COUNT 3.00 M/mm3 (4.10-5.30); WHITE BLOOD CELL COUNT,WBC 12.65 K/mm3 (3.9-11.3)
[2024-10-29] MEDS: Ondansetron 4 MG/2 ML SDV IVPUSH PRN (07:58)
[2024-10-29] MEDS: LORazepam 2 MG/ML SDV IV PRN (08:32)
[2024-10-29] MEDS: LORazepam 2 MG/ML SDV IVPUSH PRN (19:52)
[2024-10-30] MEDS: LORazepam 2 MG/ML SDV IM ONE (08:43)
[2024-10-30 09:09] VITALS: BP 143/62; PULSE 94
== END 2024-10-30 10:09 | DRG 602 ==
LOC: JD.ED 20:16 → JD.MS 23:54 → UNDOADMIN 10-18 00:15
PROVIDERS: ADMIT Student in an Organized Health Care Education/Training Program; ATTEND Student in an Organized Health Care Education/Training Program
DX: L03.116 Cellulitis of left lower limb (principal); I12.9 Hypertensive chronic kidney disease with stage 1 through stage 4 chronic kidney disease, or unspecified chronic kidney disease; N18.9 Chronic kidney disease, unspecified; I50.33 Acute on chronic diastolic (congestive) heart failure; Z88.8 Allergy status to other drugs, medicaments and biological substances; Z91.09 Other allergy status, other than to drugs and biological substances; J96.01 Acute respiratory failure with hypoxia; R78.81 Bacteremia; Z68.32 Body mass index [BMI] 32.0-32.9, adult; J98.11 Atelectasis; I13.0 Hypertensive heart and chronic kidney disease with heart failure and stage 1 through stage 4 chronic kidney disease, or unspecified chronic kidney disease; Z51.5 Encounter for palliative care; Z66 Do not resuscitate; E78.00 Pure hypercholesterolemia, unspecified; Z86.711 Personal history of pulmonary embolism; Z86.0100 Personal history of colon polyps, unspecified; E66.9 Obesity, unspecified; M16.12 Unilateral primary osteoarthritis, left hip; Z85.118 Personal history of other malignant neoplasm of bronchus and lung; M21.952 Unspecified acquired deformity of left thigh; R53.81 Other malaise; D53.9 Nutritional anemia, unspecified; K57.30 Diverticulosis of large intestine without perforation or abscess without bleeding; B95.7 Other staphylococcus as the cause of diseases classified elsewhere; N18.32 Chronic kidney disease, stage 3b; E87.6 Hypokalemia; F41.9 Anxiety disorder, unspecified; Z68.37 Body mass index [BMI] 37.0-37.9, adult; Z85.89 Personal history of malignant neoplasm of other organs and systems; Z88.5 Allergy status to narcotic agent; Z91.048 Other nonmedicinal substance allergy status; Z88.1 Allergy status to other antibiotic agents; Z79.899 Other long term (current) drug therapy; Z90.89 Acquired absence of other organs; Z98.890 Other specified postprocedural states; Z98.51 Tubal ligation status; Z90.710 Acquired absence of both cervix and uterus
CPT/HCPCS: 36415; 73552; 74177; 80053; 81001; 83605; 83690; 85025; 85610; 86140; 87040 ×2; 87077; 87086; 87154; 87186; 93971; 96360; 96361; 99285; J2543; J7030; Q9967; 71045; 71045-26; 73702-26-LT; 73702-LT; 80048; 80202; 82550; 82607; 82746; 83735; 84100; 87426-QW; 87641; 93306; 94760; 94761; 97110-GP; 97161-GP; 97530-GP; 99223; 99231; 99232; 99233; 99238; A9270-GY; J0360; J1171; J1644; J1938; J2060; J2270; J2405; J2700; J3373; J3475; J3490; J7050